=== PATIENT | male | born 1970 ===

== ENCOUNTER 2016-08-23 08:31 | Emergency (ER) | payer BC ==
[2016-08-23 08:38] VITALS: BP 122/77; PULSE 67; RESP 16; TEMP 97.5; O2SAT 97
--- NOTE | 2016-08-23 08:51 | C.PDOC ---
History Of Present Illness 46 yo male c/o itchy rash that started one week ago. Notes that he was in the yard on Tuesday and the following day he woke up with a itchy rash. On he went to an urgent care, was prescribed Mometasone. He has been using the cream but notes he has been getting new lesions prompting him to come in. No difficulty breathing. No difficulty swallowing. Time Seen by Provider: 08/23/16 08:45 Chief Complaint (Nursing): Abnormal Skin Integrity History Per: Patient History/Exam Limitations: no limitations Onset/Duration Of Symptoms: Days Current Symptoms Are (Timing): Still Present Quality Of Symptoms: Itching Past Medical History Vital Signs: Last Vital Signs Temp 97.5 F L 08/23/16 08:36 Pulse 67 08/23/16 08:36 Resp 16 08/23/16 08:36 BP 122/77 08/23/16 08:36 Pulse Ox 97 08/23/16 08:36 Family History: Denies: Other - Social History Hx Alcohol Use: Yes Hx Substance Use: No Review Of Systems Constitutional: Negative for: Fever Respiratory: Negative for: Shortness of Breath Skin: Positive for: Rash Physical Exam - Physical Exam Appears: Well, Non-toxic, No Acute Distress Skin: Warm, Dry, Rash ((+) vesicles on erythematous base on waistline and b/l upper extremities.) Head: Atraumatic, Normacephalic Eye(s): bilateral: Normal Inspection, PERRL, EOMI Nose: Normal Throat: Normal, No Erythema, No Exudate Neck: Normal, Normal ROM, Supple Chest: Symmetrical Cardiovascular: Rhythm Regular Respiratory: Normal Breath Sounds Back: Normal Inspection Extremity: Normal ROM Neurological/Psych: Oriented x3, Normal Speech ED Course And Treatment O2 Sat by Pulse Oximetry: 97 Progress Note: Discussed sign of concern and followup with derm in 1-2 days. Disposition - Disposition Disposition: HOME/ ROUTINE Disposition Time: 08:48 Condition: STABLE Additional Instructions: Follow up with PMD/ dermatology in 1-2 days . Return to ER if symtpoms persist or worsen. Prescriptions: DiphenhydrAMINE [Benadryl] 25 mg PO Q6 #20 cap predniSONE [Prednisone] 40 mg PO DAILY #8 tab Skin Cleanser Combination No.8 [Zanfel] 1 soa TP TID #1 soa Instructions: Poison Catrina (ED) - Clinical Impression Clinical Impression: Contact dermatitis due to poison catrina
== END 2016-08-23 09:21 | disposition home or self-care (01) ==
LOC: C.ER 08:31
DX: L23.7 Allergic contact dermatitis due to plants, except food (principal)